=== PATIENT | male | born 1960 | race Caucasian/White ===

== ENCOUNTER 2024-06-18 06:25 | Day surgery (SDC) | payer BC, SELFPAY | END 2024-06-18 15:15 | disposition home or self-care (01) | LOC: GI 06:25 | PROVIDERS: ATTENDING PHYSICIAN Internal Medicine Gastroenterology | DX: Z12.11 Encounter for screening for malignant neoplasm of colon (principal); D12.2 Benign neoplasm of ascending colon; K57.30 Diverticulosis of large intestine without perforation or abscess without bleeding | CPT/HCPCS: 45380; 88305 ==